=== PATIENT | male | born 1935 | race Caucasian/White ===

== ENCOUNTER 2018-01-13 06:20 | Outpatient (CLI) | payer MEDICARE, OTHER ==
[~2018-01-13 06:20] MED LIST: AZEL30SP3 BOTHNARES; CABE0.5T2 PO; CYCL1DRO EACHEYE; FENO145T38 PO; HYDR12.5 PO; HYDR20TA3 PO; LORA-641 PO; LOSA25TA96 PO; MULT-1085 PO; PANT-47 PO; SOMA5PEN2 SQ; SYN0.112T PO; TEST2.5G5 TD
== END 2018-01-13 23:59 | disposition home or self-care (01) ==
LOC: DIABETIC 06:20
PROVIDERS: ATTEND Internal Medicine Critical Care Medicine
DX: Z71.3 Dietary counseling and surveillance (principal); I12.9 Hypertensive chronic kidney disease with stage 1 through stage 4 chronic kidney disease, or unspecified chronic kidney disease; N18.3 Chronic kidney disease, stage 3 (moderate)
CPT/HCPCS: G0108

== ENCOUNTER 2018-09-01 05:58 | Day surgery (SDC) | payer MEDICARE, OTHER ==
[2018-08-31 15:46] LABS: BASOPHILS # (AUTO) 0.1 X10'3 (0-0.2); BASOPHILS % (AUTO) 0.8 % (0-1); EOSINOPHILS % (AUTO) 0.7 % (0-6); HEMATOCRIT 38.1 % (42.0-52.0); LYMPHOCYTES # (AUTO) 1.1 X10'3 (1.1-4.8); LYMPHOCYTES % (AUTO) 17.8 % (21-51); MEAN CORPUSCULAR HEMOGLOBIN 34.3 PG (27.0-31.0); MEAN CORPUSCULAR HGB CONC 34.1 g/dL (33.0-36.5); MEAN CORPUSCULAR VOLUME 100.5 FL (78-98); MEAN PLATELET VOLUME 9.2 FL (7.4-10.4); MONOCYTES # (AUTO) 0.3 X10'3 (0-0.9); MONOCYTES % (AUTO) 4.8 % (2-12); NEUTROPHILS # (AUTO) 4.9 X10'3 (1.8-7.7); NEUTROPHILS % (AUTO) 75.9 % (42-75); PLATELET COUNT 223 X10'3 (140-440); WHITE BLOOD COUNT 6.5 X10'3 (4.5-11.0)
[2018-08-31 15:54] LABS: PARTIAL THROMBOPLASTIN TIME 26 SECONDS (22-32)
[2018-08-31 15:56] LABS: ALBUMIN 3.9 G/DL (3.4-5.0); ANION GAP 8 (8-16); BLOOD UREA NITROGEN 26 MG/DL (7-18); CALCIUM 10.2 MG/DL (8.5-10.1); CHLORIDE 104 MMOL/L (99-107); CREATININE 1.62 MG/DL (0.60-1.10); GLUCOSE 144 MG/DL (70-104); POTASSIUM 3.8 MMOL/L (3.5-5.1); SODIUM 141 MMOL/L (135-145); TOTAL CARBON DIOXIDE 29.1 MMOL/L (24-32); eGFR 41 ML/MIN
[~2018-09-01] VITALS: Ht 177.8 cm; Wt 107.0 kg
[2018-09-01] VITALS (11 sets, daily range): BP systolic 118–135; BP diastolic 63–88
[~2018-09-01 05:58] MED LIST changes: +HYDR20TA23 PO; -HYDR20TA3 PO
[2018-09-01] MEDS ORDERED: normal saline 1000ml 1,000 ML IV SCH (06:20)
[2018-09-01] MEDS ORDERED: cefazolin/dext.iso 2gm/100ml 100 ML IV ONE ×2 (06:20→07:41)
[2018-09-01] MEDS ORDERED: HYDR20TA23 PO (06:42)
[2018-09-01] MEDS ORDERED: OMEG1CAP13 PO (06:52)
[2018-09-01] MEDS ORDERED: GLUC-133 PO (06:53)
[2018-09-01] MEDS ORDERED: APIX5TAB3 PO (06:54)
[2018-09-01] MEDS ORDERED: AMIO200T40 PO (06:54)
[2018-09-01] MEDS ORDERED: midazolam 2 mg/2 ml injection ONE ×2 (07:40→08:51)
[2018-09-01] MEDS ORDERED: fentaNYL/PF 50MCG/1 ML 2ML syringe ONE (07:40)
[2018-09-01] MEDS ORDERED: ceFAZolin 1000mg inj ONE (07:41)
[2018-09-01] MEDS ORDERED: LIDOcaine 1% w/EPI 1:100,000 30ml vial (MDV) ONE (07:41)
[2018-09-01] MEDS ORDERED: Thrombin (Bovine) 5,000 unit vial TP ONE (09:02)
[2018-09-01] MEDS ORDERED: HYDROcodone/acetaminophen 10/325mg tab PO PRN (10:10)
[2018-09-01] MEDS ORDERED: HYDROcodone/acetaminophen 5mg/325mg tablet PO PRN (10:10)
[2018-09-01] MEDS ORDERED: vancomycin/NS 1 GM ADD-VANTAGE 250 ML X 1 DOSE IV ONE (13:00)
== END 2018-09-01 15:40 | disposition home or self-care (01) ==
LOC: SSTAY O 05:58
PROVIDERS: ATTEND Internal Medicine Cardiovascular Disease
DX: I49.5 Sick sinus syndrome (principal); K21.9 Gastro-esophageal reflux disease without esophagitis; G47.30 Sleep apnea, unspecified; I25.10 Atherosclerotic heart disease of native coronary artery without angina pectoris; I10 Essential (primary) hypertension; E78.5 Hyperlipidemia, unspecified; I48.91 Unspecified atrial fibrillation; Z98.890 Other specified postprocedural states; Z79.899 Other long term (current) drug therapy; Z87.891 Personal history of nicotine dependence; Z88.2 Allergy status to sulfonamides
CPT/HCPCS: 33208; 36415; 71046; 80048; 85025; 85610; 85730; 93005; 99152; 99153; C1785; C1894; C1898; J0690; J2250; J3010; J3370; J3490; A4565; A6449; J7030

== ENCOUNTER 2019-02-06 09:58 | Outpatient (CLI) | payer MEDICARE, OTHER ==
[~2019-02-06 09:58] MED LIST changes: +AMIO200T61 PO; +APIX5TAB3 PO; +GLUC-133 PO; +OMEG1CAP13 PO
[2019-02-07] MEDS ORDERED: gadobutrol 10mmol/10ml inj. IV ONE (09:49)
== END 2019-02-06 23:59 | disposition home or self-care (01) ==
LOC: RAD 09:58
PROVIDERS: ATTEND Nurse Practitioner
DX: M48.061 Spinal stenosis, lumbar region without neurogenic claudication (principal); E23.0 Hypopituitarism; M54.16 Radiculopathy, lumbar region; M54.6 Pain in thoracic spine; M54.5 Low back pain
CPT/HCPCS: 70553; 72148; A9585

== ENCOUNTER 2019-12-11 10:19 | Outpatient (CLI) | payer MEDICARE, OTHER ==
[~2019-12-11 10:19] MED LIST changes: +HYDR20TA2 PO; -HYDR20TA23 PO
[2019-12-11] MEDS ORDERED: GADOTERATE MEGLUMINE 7.5 MMOL/15 ML VIAL IV ONE (15:53)
== END 2019-12-11 23:59 | disposition home or self-care (01) ==
LOC: RAD 10:19
PROVIDERS: ATTEND Specialist
DX: E23.0 Hypopituitarism (principal)
CPT/HCPCS: 70543; A9575

== ENCOUNTER 2020-11-21 09:28 | Outpatient (CLI) | payer MEDICARE, OTHER ==
[~2020-11-21 09:28] MED LIST changes: -HYDR20TA2 PO; +HYDR20TA24 PO
[2020-11-21] MEDS ORDERED: GADOTERATE MEGLUMINE 7.5 MMOL/15 ML VIAL IV ONE (11:50)
== END 2020-11-21 23:59 | disposition home or self-care (01) ==
LOC: RAD 09:28
PROVIDERS: ATTEND Specialist
DX: E23.0 Hypopituitarism (principal)
CPT/HCPCS: 70543; 70553; A9575

== ENCOUNTER 2021-08-07 14:06 | Outpatient (CLI) | payer MEDICARE, OTHER | END 2021-08-07 23:59 | disposition home or self-care (01) | LOC: CARD DIAG 14:06 | PROVIDERS: ATTEND Internal Medicine Cardiovascular Disease | DX: I65.23 Occlusion and stenosis of bilateral carotid arteries (principal); I08.1 Rheumatic disorders of both mitral and tricuspid valves; I48.91 Unspecified atrial fibrillation; H34.9 Unspecified retinal vascular occlusion | CPT/HCPCS: 93306; 93880 ==

== ENCOUNTER 2021-09-12 10:41 | Outpatient (CLI) | payer MEDICARE, OTHER ==
[2021-09-12 10:59] LABS: TOTAL HEMOGLOBIN 12.6 G/dl (14.0-18.0)
[2021-09-12] MEDS ORDERED: albuterol 2.5 MG/3 ML nebule NEB ONE (11:25)
== END 2021-09-12 23:59 | disposition home or self-care (01) ==
LOC: RT 10:41
PROVIDERS: ATTEND Internal Medicine Cardiovascular Disease
DX: I51.7 Cardiomegaly (principal); R94.2 Abnormal results of pulmonary function studies; G47.30 Sleep apnea, unspecified; Z87.891 Personal history of nicotine dependence; Z79.899 Other long term (current) drug therapy; Z95.0 Presence of cardiac pacemaker
CPT/HCPCS: 71046; 85018; 94060; 94727; 94729; 94760

== ENCOUNTER 2022-02-16 05:51 | Day surgery (SDC) | payer MEDICARE, OTHER ==
[2022-02-09 15:25] LABS: BASOPHILS % (AUTO) 0.5 % (0-1); EOSINOPHILS % (AUTO) 0.2 % (0-6); LYMPHOCYTES # (AUTO) 1.4 X10'3 (1.1-4.8); LYMPHOCYTES % (AUTO) 15.9 % (21-51); MEAN CORPUSCULAR HEMOGLOBIN 29.9 PG (27.0-31.0); MEAN CORPUSCULAR VOLUME 93.6 FL (78-98); MEAN PLATELET VOLUME 8.6 FL (7.4-10.4); MONOCYTES # (AUTO) 0.4 X10'3 (0-0.9); MONOCYTES % (AUTO) 5.2 % (2-12); NEUTROPHILS # (AUTO) 6.6 X10'3 (1.8-7.7); NEUTROPHILS % (AUTO) 78.2 % (42-75); PRE OP HEMATOCRIT 39.7 % (42.0-52.0); PRE OP HEMOGLOBIN 12.7 g/dL (14.0-17.9); PRE OP PLATELET COUNT 242 X10'3 (140-440); RED BLOOD COUNT 4.24 X10'6 (4.70-6.10); RED CELL DISTRIBUTION WIDTH 17.3 % (11.5-14.5)
[2022-02-09 15:37] LABS: ALBUMIN 3.9 G/DL (3.4-5.0); ALBUMIN/GLOBULIN RATIO 1.3 (1.1-1.5); ALKALINE PHOSPHATASE 78 IU/L (46-116); BLOOD UREA NITROGEN 27 MG/DL (7-18); BUN/CREATININE RATIO 19.7 (5.4-32.0); CALCIUM 9.9 MG/DL (8.5-10.1); CHLORIDE 103 MMOL/L (99-107); CREATININE 1.37 MG/DL (0.60-1.10); PRE OP ALT 30 U/L (30-65); PRE OP ANION GAP 8 (8-16); PRE OP AST 20 U/L (10-37); PRE OP BILIRUB, TOTAL 0.5 MG/DL (0.0-1.0); PRE OP GLUCOSE 96 MG/DL (70-104); PRE OP POTASSIUM 3.9 MMOL/L (3.4-5.1); PRE OP SODIUM 141 MMOL/L (135-145); TOTAL CARBON DIOXIDE 30.1 MMOL/L (24-32); eGFR 49 ML/MIN
[2022-02-16] VITALS (12 sets, daily range): BP systolic 103–125; BP diastolic 64–70
[~2022-02-16] VITALS: Ht 172.7 cm; Wt 85.0 kg
[~2022-02-16 05:51] MED LIST changes: -FENO145T38 PO; -HYDR12.5 PO; +OMEG-5 PO; -OMEG1CAP13 PO; +ceFAZolin inj. 2,000 MG in dextrose 5%-water 100 ML IV ONE; +famotidine 20mg tablet PO ONE; +ringers solution, lacted 1,000 ML IV SCH
[2022-02-16] MEDS ORDERED: BUPIVAcaine 0.5% inj/PF 30 ML ONE (06:42)
[2022-02-16] MEDS ORDERED: LIDOcaine 1% 30ml preserv. free vial ONE (07:24)
[2022-02-16] MEDS ORDERED: fentaNYL/PF 50MCG/1 ML 2ML syringe ONE (07:32)
[2022-02-16] MEDS ORDERED: midazolam 1 mg/ML 2ml injection ONE (07:32)
[2022-02-16] MEDS ORDERED: BUPIVAcaine 0.5% inj/PF 30 ml vial IJ ONE (08:05)
--- NOTE | 2022-02-16 08:28 | NUR ---
Received from OR via [facility], accompanied by Anesthesiologist DR HUERTA and report given by Anesthesiologist AND ELECTRONICS INSTALLER. PT DROWSY, BUT APPROPRIATE, RIGHT HAND/WRIST W/BIAS DRSG COVERING CDI, FINGERS PWD, TOOTH CUTTER 1-2 SECONDS.
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
== END 2022-02-16 10:28 | disposition home or self-care (01) ==
LOC: PAS 05:51
PROVIDERS: ATTEND Orthopaedic Surgery Hand Surgery
DX: G56.01 Carpal tunnel syndrome, right upper limb (principal); G56.21 Lesion of ulnar nerve, right upper limb; G47.30 Sleep apnea, unspecified; F41.9 Anxiety disorder, unspecified; Z79.899 Other long term (current) drug therapy; Z90.49 Acquired absence of other specified parts of digestive tract; Z98.890 Other specified postprocedural states; Z72.89 Other problems related to lifestyle
CPT/HCPCS: 29848; 36415; 64718; 80053; 82948; 85025; 93005; J0690; J2250; J3010; J3490; J7030; J7060; J7120; S0020; Z7506; Z7512; A4215; A6449

== ENCOUNTER 2022-03-18 13:02 | Outpatient (CLI) | payer MEDICARE, OTHER ==
[~2022-03-18 13:02] MED LIST changes: -ceFAZolin inj. 2,000 MG in dextrose 5%-water 100 ML IV ONE; -famotidine 20mg tablet PO ONE; -ringers solution, lacted 1,000 ML IV SCH
== END 2022-03-18 23:59 | disposition home or self-care (01) ==
LOC: RAD 13:02
PROVIDERS: ATTEND Orthopaedic Surgery
DX: M47.815 Spondylosis without myelopathy or radiculopathy, thoracolumbar region (principal); M51.26 Other intervertebral disc displacement, lumbar region; M12.88 Other specific arthropathies, not elsewhere classified, other specified site; M48.062 Spinal stenosis, lumbar region with neurogenic claudication; M48.02 Spinal stenosis, cervical region; G56.00 Carpal tunnel syndrome, unspecified upper limb; R29.898 Other symptoms and signs involving the musculoskeletal system
CPT/HCPCS: 72148

== ENCOUNTER 2022-03-25 11:37 | Emergency (ER) | payer MEDICARE, OTHER ==
[~2022-03-25] VITALS: Ht 172.7 cm; Wt 84.1 kg
[2022-03-25 12:10] VITALS: BP 116/88
[2022-03-25 13:57] LABS: BASOPHILS % (AUTO) 0.6 % (0-1); EOSINOPHILS % (AUTO) 0.4 % (0-6); HEMATOCRIT 31.2 % (42.0-52.0); HEMOGLOBIN 9.9 g/dl (14.0-17.9); LYMPHOCYTES # (AUTO) 0.6 X10'3 (1.1-4.8); LYMPHOCYTES % (AUTO) 13.8 % (21-51); MEAN CORPUSCULAR HEMOGLOBIN 28.5 PG (27.0-31.0); MEAN CORPUSCULAR HGB CONC 31.7 g/dL (33.0-36.5); MEAN PLATELET VOLUME 9.3 FL (7.4-10.4); MONOCYTES # (AUTO) 0.3 X10'3 (0-0.9); MONOCYTES % (AUTO) 7.1 % (2-12); NEUTROPHILS # (AUTO) 3.2 X10'3 (1.8-7.7); NEUTROPHILS % (AUTO) 78.1 % (42-75); PLATELET COUNT 158 X10'3 (140-440); RED BLOOD COUNT 3.47 X10'6 (4.70-6.10); RED CELL DISTRIBUTION WIDTH 17.5 % (11.5-14.5); WHITE BLOOD COUNT 4.1 X10'3 (4.5-11.0)
[2022-03-25 14:14] LABS: ALANINE AMINOTRANSFERASE 75 U/L (12-78); ALBUMIN 3.4 G/DL (3.4-5.0); ALBUMIN/GLOBULIN RATIO 1.2 (1.1-1.5); ALKALINE PHOSPHATASE 128 IU/L (46-116); ANION GAP 5 (8-16); ASPARTATE AMINO TRANSFERASE 39 U/L (10-37); BILIRUBIN,TOTAL 0.4 MG/DL (0.1-1.0); BLOOD UREA NITROGEN 39 MG/DL (7-18); BUN/CREATININE RATIO 23.8 (5.4-32.0); CALCIUM 9.2 MG/DL (8.5-10.1); CHLORIDE 105 MMOL/L (99-107); CREATININE 1.64 MG/DL (0.60-1.10); GLUCOSE 99 MG/DL (70-104); POTASSIUM 4.6 MMOL/L (3.5-5.1); SODIUM 140 MMOL/L (135-145); TOTAL CARBON DIOXIDE 30.5 MMOL/L (24-32); TOTAL PROTEIN 6.3 G/DL (6.4-8.2); eGFR 40 ML/MIN
== END 2022-03-25 18:10 | disposition home or self-care (01) ==
LOC: ER 11:37
DX: R07.89 Other chest pain (principal); R05.9 Cough, unspecified; Z20.822 Contact with and (suspected) exposure to COVID-19; M54.50 Low back pain, unspecified; M54.2 Cervicalgia; I10 Essential (primary) hypertension; Z88.2 Allergy status to sulfonamides; Z79.01 Long term (current) use of anticoagulants; Z79.899 Other long term (current) drug therapy; Z98.890 Other specified postprocedural states; Z95.0 Presence of cardiac pacemaker
CPT/HCPCS: 36415; 71045; 80053; 83880; 84145; 84484; 85025; 87502; 87503; 87635; 93005; 99285; C9803